=== PATIENT | male | born 1935 | race Caucasian/White ===

== ENCOUNTER 2019-06-09 14:45 | Inpatient (IN) | payer OTHER ==
[~2019-06-09] VITALS: Ht 182.9 cm; Wt 93.2 kg
[2019-06-10] MEDS ORDERED: BAYER CHEWABLE81 MG PO (13:51)
[2019-06-10] MEDS ORDERED: NORVASC10 MG PO (13:51)
[2019-06-10] MEDS ORDERED: LIPITOR20 MG PO (13:51)
[2019-06-10] MEDS ORDERED: DECADRON4 MG PO (13:51)
[2019-06-10] MEDS ORDERED: FOSINOPRIL SODI20 MG PO (13:52)
[2019-06-10] MEDS ORDERED: GLUCOTROL XL 5 M5 MG PO (13:52)
[2019-06-10] MEDS ORDERED: METOPROLOL TART50 MG PO (13:53)
[2019-06-10] MEDS ORDERED: OMEPRAZOLE20 M1 PO (13:53)
[2019-06-10] MEDS ORDERED: OMEGA-3100 MG PO (13:53)
[2019-06-11] VITALS (14 sets, daily range): BP systolic 115–156; BP diastolic 45–74; Ht 182.9 cm; Wt 93.2 kg
[2019-06-11 09:35] LABS: HEMATOCRIT 42.7 % (42.0-54.0); HEMOGLOBIN 14.4 g/dL (13.5-17.5); LYMPHOCYTES 10.9 % (15-50); MCH 29.1 pg (26.0-34.0); MCHC 33.7 g/dL (31.0-37.0); MCV 86.4 fL (80.0-100.0); MEAN PLATELET VOLUME 11.1 fL (7.4-10.4); NEUTROPHILS 85.6 % (40-80); PLATELET COUNT 200 10x3/uL (130-400); RBC 4.94 10x6/uL (4.20-6.10); RDW 14.3 % (11.5-14.5); WBC 12.2 10x3/uL (4.8-10.8)
[2019-06-11 09:53] LABS: ANION GAP 11.4 mmol/L (8-16); CALCIUM 9.2 mg/dL (8.5-10.1); CARBON DIOXIDE 28.1 mmol/L (21.0-32.0); CREATININE - SERUM 1.2 mg/dL (0.6-1.3); POTASSIUM - SERUM 4.5 mmol/L (3.5-5.1)
--- NOTE | 2019-06-11 19:44 | NUR ---
PT RECEIVED IN BED WITH EYES OPEN WATCHING TV. ALERT AND ORIENTED. CALL LIGHT IN REACH. DENIES PAIN OR OTHER NEEDS AT THIS TIME. WILL CONTINUE TO OBSERVE.
--- NOTE | 2019-06-11 20:15 | NUR ---
FAMILY AT BEDSIDE.
--- NOTE | 2019-06-11 21:44 | NUR ---
PT IN BED WITH EYES CLOSED AND CHEST RISING. NO S/S OF DISTRESS. EASILY AWOKEN TO ENTRY. NO NEEDS MADE KNOWN. CALL LIGHT IN REACH. WILL CONTINUE TO OBSERVE.
--- NOTE | 2019-06-11 23:36 | NUR ---
PT ATTEMPT BM, GAS AND SMEAR OF BM NOTED.
[2019-06-12] VITALS (14 sets, daily range): BP systolic 120–162; BP diastolic 48–84
--- NOTE | 2019-06-12 01:44 | NUR ---
PT RESTING WITH EYES CLOSED AND CHEST RISING. EASILY AWOKENT TO VERBAL STIMULI. FRESH WATER GIVEN. NO OTHER NEEDS MADE KNOWN. CALL LIGHT IN REACH. WILL CONTINUE TO OBSERVE.
--- NOTE | 2019-06-12 04:18 | NUR ---
PT WITH EYES OPEN. NO S/S OF DISTRESS. CALL LIGHT IN REACH. NO NEEDS MADE KNOWN. WILL CONTINUE TO OBSERVE.
--- NOTE | 2019-06-12 06:33 | NUR ---
PT USING PERSONAL TABLET. NO NEEDS MADE KNOWN. CALL LIGHT IN REACH.
--- NOTE | 2019-06-12 13:43 | MORECARE ---
CASE MANAGEMENT DISCHARGE SUMMARY PATIENT: GWENDOLYN JOHNSON UNIT: [id number] ADM DATE: 06/11/19 AGE: 83 : 37 SEX: M ROOM/BED: D.[facility] AUTHOR: RADHA TOVAR PHYSICIAN: REFERRING PHYSICIAN: ALISSA SWAN MD DATE OF SERVICE: 06/12/19 Discharge Plan Patient Name: GWENDOLYN JOHNSON [facility] [facility] 1935 Planned Disposition: Anticipated Discharge Date: Discharge Date: Expected LOS: Initial Reviewer: [email or web address] Initial Review Date: 06/11/2019 Generated: 06/12/19 2:43 pm Patient Name: GWENDOLYN JOHNSON Page [id number] at 1343 All edits/amendments must be made on the electronic document DICTATION DATE: 06/12/19 1343 DATABASE SPECIALIST: HAILE 06/12/19 1343 RPT#: [id number] DC DATE: STATUS: ADM IN [facility] [address] [place] [address] END OF REPORT
--- NOTE | 2019-06-12 13:50 | MORECARE ---
CASE MANAGEMENT DISCHARGE SUMMARY PATIENT: GWENDOLYN MORA UNIT: [id number] ADM DATE: 06/11/19 AGE: 83 : 37 SEX: M ROOM/BED: D.03 AUTHOR: RADHA TOVAR PHYSICIAN: REFERRING PHYSICIAN: ALISSA SWAN MD DATE OF SERVICE: 06/12/19 Discharge Plan Patient Name: GWENDOLYN MORA [facility] : 1935 Planned Disposition: Anticipated Discharge Date: Discharge Date: Expected LOS: Initial Reviewer: [email or web address] Initial Review Date: 06/11/2019 Generated: 06/12/19 2:50 pm DCP- Discharge Planning Updated by [email or web address]: Rosaline Ugarte on 06/12/19 12:[address] CM met with patient to discuss dc plans/needs. Patient is alert/oriented, gives permission to complete CM assessment. Patient lives alone with his dog. Stairs/steps: 2 steps in garage entry, none in the home. PCP: Dr. Amin. Pharmacy: [facility] and also [facility] mail-off for termite treater helper. HHS: No. DME: [facility], Shower chair. Emergency contact: Vidal Mora (son) [phone]. Patient's son plans on staying until Monday 06/18. Independent with ADL's. Denies need for additional services at this time and feels safe returning to previous environment. Patient denies being hospitalized within the past 30 days. 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 Patient's son will provide transportation at time of discharge. Patient states he would like to be discharged by Friday in order to attend his kljxujb-mh-jrv's . CM will follow and assist PRN. Last DP export: 06/12/19 12:43 Patient Name: GWENDOLYN MORA Page [id number] at 1350 All edits/amendments must be made on the electronic document DICTATION DATE: 06/12/19 1350 CAREER BASED INTERVENTION COORDINATOR: HAILE 06/12/19 1350 RPT#: [id number] DC DATE: STATUS: ADM IN [facility] [address] [facility] [place] [address] END OF REPORT
--- NOTE | 2019-06-12 15:10 | MORECARE ---
CASE MANAGEMENT DISCHARGE SUMMARY PATIENT: GWENDOLYN MORA UNIT: [id number] ADM DATE: 06/12/19 AGE: 83 : 37 SEX: M ROOM/BED: D[facility] AUTHOR: RADHA TOVAR PHYSICIAN: REFERRING PHYSICIAN: ALISSA SWAN MD DATE OF SERVICE: 06/12/19 Discharge Plan Patient Name: GWENDOLYN MORA Facility: [facility]:[place] : 1935 Planned Disposition: Anticipated Discharge Date: Discharge Date: Expected LOS: Initial Reviewer: [email or web address] Initial Review Date: 06/11/2019 Generated: 06/12/19 4:10 pm DCP- Discharge Planning Updated by [email or web address]: Rosaline Ugarte on 06/12/19 12:[address] CM met with patient to discuss dc plans/needs. Patient is alert/oriented, gives permission to complete CM assessment. Patient lives alone with his dog. Stairs/steps: 2 steps in garage entry, none in the home. PCP: Dr. Amin. Pharmacy: [facility] and also [facility] mail-off for room service attendant. HHS: No. DME: [facility], Shower chair. Emergency contact: Vidal Mora (son) [phone]. Patient's son plans on staying until Monday 06/18. Independent with ADL's. Denies need for additional services at this time and feels safe returning to previous environment. Patient denies being hospitalized within the past 30 days. 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 Patient's son will provide transportation at time of discharge. Patient states he would like to be discharged by Friday in order to attend his lxhtbyc-cu-xpn's . CM will follow and assist PRN. External Providers External Provider: OTHER-OTHER Next Contact Date: Service Request Date: Service Type: Resolution: Reviewer: Comments: Last DP export: 06/12/19 12:50 Patient Name: GWENDOLYN MORA Page [id number] at 1510 All edits/amendments must be made on the electronic document DICTATION DATE: 06/12/19 1510 SOCIAL WORK SUPERVISOR: HAILE 06/12/19 1510 RPT#: [id number] DC DATE: STATUS: ADM IN [facility] [address] [place] [address] END OF REPORT
--- NOTE | 2019-06-12 17:16 | NUR ---
PATIENT ADMITTED TO ROOM 2225. BANDAID C/D/I TO RIGHT FOREHEAD. DENIES NEEDS. FALL ALARM PLACED ON BED. EDUCATION PROVIDED. URINAL GIVEN PER REQUEST. DENIES NEEDS. WILL CONTINUE TO MONITOR.
--- NOTE | 2019-06-12 17:54 | NUR ---
SITTING IN CHAIR AT BEDSIDE. DENIES NEEDS. CALL BORDEN AND PERSONAL ITEMS IN REACH.
--- NOTE | 2019-06-12 19:15 | NUR ---
ALERT AND ORIENTED. SITTING IN CHAIR READING WHEN ENTERING THE ROOM. PATIENT ANSWERS QUESTIONS APPROPRIATELY. DENIES PAIN OR DISCOMFORT AT THIS TIME. BANDAGE TO RIGHT SIDE OF FOREHEAD CLEAN DRY AND INTACT. CALL LIGHT IN REACH OF PATIENT. CPOC.
--- NOTE | 2019-06-12 21:00 | NUR ---
PATIENT INDEPENDENTLY RETURNED TO BED WITH OBSERVATION FROM THIS NURSE. NO ASSISTANCE NEEDED. PROVIDED ICE WATER PER REQUEST. DENIES PAIN. INSTRUCTED ON UPCOMING STEROIDS DURING SHIFT. PATIENT VERBALIZES UNDERSTANDING. DENIES FURTHER NEEDS. CPOC.
[2019-06-13] VITALS: BP 111/55; BP 128/51
--- NOTE | 2019-06-13 03:00 | NUR ---
I have reviewed this patient and I concur with the Shift Assessment completed by the Licensed Practical Nurse today this shift.
[2019-06-13 04:00] VITALS: BP 143/65
[2019-06-13 07:46] VITALS: BP 146/72
--- NOTE | 2019-06-13 07:51 | NUR ---
ALERT AND ORIENTED. LUNGS CLEAR BILATERALLY. HEART SOUNDS S1 AND S2 HEARD IN ALL URIBE. BOWEL SOUNDS ACTIVE X 4. SKIN INTACT WITHOUT REDNESS. BANDAID TO RIGHT FOREHEAD C/D/I. NO C/O PAIN OR HEADACHE. SITTING IN CHAIR AT BEDSIDE. DENIES NEEDS. CALL BORDEN AND PERSONAL ITEMS IN REACH. WILL CONTINUE TO MONITOR.
--- NOTE | 2019-06-13 08:29 | NUR ---
SPOKE WITH PHARMACY TO BRING MONOPRIL FOR PATIENT. STATES WILL BRING.
[2019-06-13] MEDS ORDERED: MEDROL DOSE PACK4 MG PO (09:11)
--- NOTE | 2019-06-13 10:20 | NUR ---
DISCHARGE EDUCATION PROVIDED BOTH WRITTEN AND VERBAL. VERBALIZED UNDERSTANDING. DENIES FURTHER QUESTIONS. INCISION TO RIGHT HEAD C/D/I. EDUCATION PROVIDED TO KEEP CLEAN AND DRY. VERBALIZED UNDERSTANDING. DENIES NEEDS. PATIENT DISCHARGED HOME WITH SON WITH ALL BELONGINGS.
--- NOTE | 2019-06-13 10:34 | NUR ---
ADDITION TO PREVIOUS NOTE. IV REMOVED FOR LFA WITH TIP INTACT.
--- NOTE | 2019-06-14 14:20 | MORECARE ---
CASE MANAGEMENT DISCHARGE SUMMARY PATIENT: GWENDOLYN MORA UNIT: [id number] ADM DATE: 06/12/19 AGE: 83 : 37 SEX: M ROOM/BED: D.2225 AUTHOR: RADHA TOVAR PHYSICIAN: REFERRING PHYSICIAN: ALISSA SWAN MD DATE OF SERVICE: 06/14/19 Discharge Plan Patient Name: GWENDOLYN MORA Facility: [facility]:[place] : 1935 Planned Disposition: Anticipated Discharge Date: Discharge Date: 06/13/2019 Expected LOS: Initial Reviewer: [email or web address] Initial Review Date: 06/11/2019 Generated: 06/14/19 3:19 pm DCP- Discharge Planning Updated by [email or web address]: Rosaline Ugarte on 06/12/19 12:[address] CM met with patient to discuss dc plans/needs. Patient is alert/oriented, gives permission to complete CM assessment. Patient lives alone with his dog. Stairs/steps: 2 steps in garage entry, none in the home. PCP: Dr. Amin. Pharmacy: [facility] and also [facility] mail-off for prison. HHS: No. DME: [facility], Shower chair. Emergency contact: Vidal Mora (son) [phone]. Patient's son plans on staying until Monday 06/18. Independent with ADL's. Denies need for additional services at this time and feels safe returning to previous environment. Patient denies being hospitalized within the past 30 days. 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 Patient's son will provide transportation at time of discharge. Patient states he would like to be discharged by Friday in order to attend his dcmfvyr-ae-wpx's . CM will follow and assist PRN. Last DP export: 06/12/19 2:10 Patient Name: GWENDOLYN MORA Page [id number] at 1420 All edits/amendments must be made on the electronic document DICTATION DATE: 06/14/191418 MECHANICS SUPERVISOR: HAILE 06/14/191418 RPT#: [id number] DC DATE:06/13/19 STATUS: DIS IN [facility] [address] [place] [address] END OF REPORT
--- NOTE | 2019-07-03 21:35 | OP ---
PATIENT NAME: GWENDOLYN JOHNSON MEDICAL RECORD: [id number] :[birth year] LOCATION:D.[facility] ADMISSION DATE:06/12/19 SURGEON: ALISSA SWAN MD DATE OF OPERATION: 06/12/2019 SURGEON: Alissa Swan MD PREOPERATIVE DIAGNOSIS: Right frontal subdural hematoma. POSTOPERATIVE DIAGNOSIS: Right frontal subdural hematoma. PROCEDURE: Right frontal marjorie hole craniotomy for evacuation of subdural hematoma. DESCRIPTION OF TECHNIQUE: After induction of general endotracheal anesthesia, the patient's right frontal scalp was prepped and draped in usual sterile fashion. After infiltration of 1:100,000 epinephrine and 1% lidocaine over the right superior temporal line, a scalp incision was carried out with #10-blade. A Midas Joanthon drill with a craniotome was used to create a marjorie hole. The dura was opened in a cruciate manner with bipolar cautery and a #11 blade. There was brisk egress of subacute subdural hematoma fluid from the subdural space. This was irrigated with lukewarm saline irrigant solution until the fluid was crystal clear. The galea was closed with interrupted 2-0 Vicryl sutures. The skin was closed with deric. A sterile dressing was applied to the wound. The patient was awakened in good condition and taken to recovery. All counts were reported as correct. Estimated blood loss was minimal. TRANSINT:[id number] Voice Confirmation ID: [id number] DOCUMENT ID: [id number] ALISSA SWAN MD at 2135 CC: [id number] DICTATION DATE: 07/02/19829 NURSE LDR: 07/02/19 0952 DIS IN 06/13/19 [place] [id number] [place] [id number]
== END 2019-06-13 10:36 | disposition home or self-care (01) | DRG 27 ==
LOC: D.CVICU 06-11 08:57 → D.SDCHOLD 06-11 08:57 → D.CVICU 06-11 08:57 → D.SDCHOLD 06-11 11:25 → OBSVTIME 06-11 13:05 → D.CVICU 06-11 13:39 → D.MS 06-12 17:12
PROVIDERS: Anesthesiology; ADMIT Neurological Surgery; ATTEND Neurological Surgery
PROC: 00C40ZZ Extirpation of Matter from Intracranial Subdural Space, Open Approach (ICD-10-PCS; principal; 2019-06-12)
DX: S06.5X0A Traumatic subdural hemorrhage without loss of consciousness, initial encounter (principal); E11.9 Type 2 diabetes mellitus without complications; I10 Essential (primary) hypertension; E78.5 Hyperlipidemia, unspecified; I25.10 Atherosclerotic heart disease of native coronary artery without angina pectoris; K21.9 Gastro-esophageal reflux disease without esophagitis; W17.89XA Other fall from one level to another, initial encounter